=== PATIENT | female | born 1945 | race Hispanic/Latino ===

== ENCOUNTER 2017-02-04 08:22 | Inpatient (IN) | payer MEDICAID, MEDICARE ==
[2017-02-10 08:09] VITALS: PULSE 118; RESP 18; TEMP 98.4; O2SAT 98
[2017-02-10 09:28] VITALS: BP 119/73
== END 2017-02-10 15:48 | DRG 292 ==
LOC: C.ER 08:22 → C.9E 12:52 → C.6T 15:10
PROVIDERS: ADMIT Internal Medicine Nephrology; ATTEND Internal Medicine Nephrology
DX: I11.0 Hypertensive heart disease with heart failure (principal); N39.0 Urinary tract infection, site not specified; N17.9 Acute kidney failure, unspecified; F32.9 Major depressive disorder, single episode, unspecified; E11.9 Type 2 diabetes mellitus without complications; B96.1 Klebsiella pneumoniae [K. pneumoniae] as the cause of diseases classified elsewhere; I50.9 Heart failure, unspecified; S00.83XA Contusion of other part of head, initial encounter; S70.00XA Contusion of unspecified hip, initial encounter; W19.XXXA Unspecified fall, initial encounter; E78.00 Pure hypercholesterolemia, unspecified; I45.10 Unspecified right bundle-branch block; Y92.019 Unspecified place in single-family (private) house as the place of occurrence of the external cause